=== PATIENT | female | born 1985 | race Caucasian/White ===

== ENCOUNTER 2018-01-25 11:35 | Emergency (ER) | payer OTHER ==
[2018-01-25] MEDS ORDERED: TETANUS/DIPHTHERIA/PERTUSSIS 0.5 ML SYRINGE IM ONE (12:34)
[2018-01-25] MEDS ORDERED: LIDOCAINE-EPINEPH-TETRACAINE 3 ML SYRINGE TOP ONE (12:39)
[2018-01-25] MEDS ORDERED: LIDOCAINE-EPINEPH-TETRACAINE 3 ML SYRINGE TOP STA (12:49)
--- NOTE | 2018-01-25 12:53 | ED Physician Documentation ---
History of Present Illness - Stated complaint Stated Complaint: WRIST LAC - Chief complaint Chief Complaint: Laceration - Additonal information Additional information: hx from pt healthy 32 y/o f lac to L ant radial wrist with kitchen knife Review of Systems Skin: reports: Laceration (s) PD PAST MEDICAL HISTORY - Past Medical History Past Medical History: No - Past Surgical History Past Surgical History: Yes - Present Medications Home Medications: Ambulatory Orders Medication Instructions Recorded Confirmed Omeprazole 01/25/18 - Allergies Allergies/Adverse Reactions: Allergies Allergy/AdvReac Type Severity Reaction Status Date / Time acetaminophen [From Vicodin] Allergy Emesis Verified 01/25/18 11:43 hydrocodone [From Vicodin] Allergy Emesis Verified 01/25/18 11:43 - Social History Does the pt smoke?: Yes Smoking Status: Current every day smoker PD ED PE NORMAL - Vitals Vital signs reviewed: Yes - Derm Derm: Other (L wrist ant radial aspect approx 1/5 cm full thickeness lac and adjacent 3 cm superficial abrasion, thankfully not into radial artery or tendons , ran thumb and wrsit through ROM and no tednon defect seen and no FB seen, very clean sharp and well approximated, MSV intact) Results - Vitals Vitals: Vital Signs - 24 hr 01/25/18 11:41 Temperature 36.2 C L Heart Rate 84 Respiratory 17 Rate Blood Pressure 135/67 H O2 Saturation 100 Oxygen O2 Source Room air Procedures - Laceration (location) L wrist Length in cm: 1.5 Wound type: Linear Neurovascular status: Sensory intact, Motor intact Tendon involvement: Tendon intact Anesthesia: LET Wound Preparation: Irrigated copiously 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 No: FB identified Skin layer closure: Dermabond Other: Patient tolerated well, No complications, Dressing applied, Tetanus booster given Complexity: Simple Departure - Departure Disposition: 01 Home, Self Care Clinical Impression: Laceration Condition: Good Instructions: ED Laceration Ext Skin Glue Comments: The skin glue will gradually flake off over about 10 days May shower and wash hands as usual but do not soak the wound. Do not apply any lotion or ointment as that might dissolve the glue Wear the splint to keep from bending the wrist and putting stress on the healing wound This wound should be low risk for infection but any wound can become infected so if you notice any redness swelling or drainage, please come back to the ER You got a tetanus booster in the ER today - please let your PMD know so your records can be updated
[2018-01-25 13:53] VITALS: BP 116/84
== END 2018-01-25 13:53 | disposition home or self-care (01) ==
LOC: ED 11:35
DX: S61.512A Laceration without foreign body of left wrist, initial encounter (principal); W26.0XXA Contact with knife, initial encounter; Y93.G1 Activity, food preparation and clean up; Y92.511 Restaurant or cafe as the place of occurrence of the external cause; Z23 Encounter for immunization; F17.200 Nicotine dependence, unspecified, uncomplicated
CPT/HCPCS: 12001; 90471; 99282; 99283

== ENCOUNTER 2018-03-14 20:27 | Emergency (ER) | payer SELFPAY ==
[2018-03-14 20:34] VITALS: BP 133/82
[2018-03-14] MEDS ORDERED: IBUPROFEN 800 MG TABLET PO STA (20:53)
[2018-03-14] MEDS ORDERED: AMOXICILLIN 250 MG CAPSULE PO STA (20:53)
--- NOTE | 2018-03-14 20:55 | ED Physician Documentation ---
PD HPI HEENT - Stated complaint Stated Complaint: EAR PX - Chief complaint Chief Complaint: Heent - History obtained from History obtained from: Patient - History of Present Illness Timing - onset: Today (About 1 week of URI sx, runny nose. Now R ear pain and muffled hearing today. No fever.) Review of Systems Constitutional: denies: Fever, Chills Eyes: denies: Loss of vision, Decreased vision, Photophobia Ears: denies: Tinnitus/ringing, Foreign body Nose: reports: Rhinorrhea / runny nose, Congestion PD PAST MEDICAL HISTORY - Past Medical History Past Medical History: No - Past Surgical History Past Surgical History: Yes Ortho: Other - Present Medications Home Medications: Ambulatory Orders Medication Instructions Recorded Confirmed Omeprazole 01/25/18 Amoxicillin 500 mg PO TID #30 capsule 03/14/18 Ibuprofen [Motrin] 800 mg PO Q8H PRN #30 tablet 03/14/18 - Allergies Allergies/Adverse Reactions: Allergies Allergy/AdvReac Type Severity Reaction Status Date / Time acetaminophen [From Vicodin] Allergy Emesis Verified 01/25/18 11:43 hydrocodone [From Vicodin] Allergy Emesis Verified 01/25/18 11:43 - Social History Does the pt smoke?: Yes Smoking Status: Current every day smoker Does the pt drink ETOH?: Yes Does the pt have substance abuse?: No - Immunizations Immunizations are current?: Yes - POLST Patient has POLST: No PD ED PE NORMAL - Vitals Vital signs reviewed: Yes - General General: Alert and oriented X 3, No acute distress - HEENT HEENT: PERRL, EOMI, Other (BAD ROM) - Neck Neck: Supple, no meningeal sign, No bony TTP - Neuro Neuro: Alert and oriented X 3, Normal speech - Psych Psych: Normal mood, Normal affect Results - Vitals Vitals: Vital Signs - 24 hr 03/14/18 20:33 Temperature 36.4 C L Heart Rate 99 Respiratory 14 Rate Blood Pressure 133/82 H O2 Saturation 100 Oxygen O2 Source Room air Departure - Departure Disposition: 01 Home, Self Care Clinical Impression: ROM (right otitis media) Qualifiers: Otitis media type: suppurative Chronicity: acute Recurrence: not specified as recurrent Spontaneous tympanic membrane rupture: without spontaneous rupture Qualified Code(s): H66.001 - Acute suppurative otitis media without spontaneous rupture of ear drum, right ear Condition: Good Record reviewed to determine appropriate education?: Yes Instructions: ED Otitis Media Acute Adult Prescriptions: Amoxicillin 500 mg PO TID #30 capsule Ibuprofen [Motrin] 800 mg PO Q8H PRN #30 tablet PRN Reason: PAIN &/OR FEVER Comments: Call your doctor to arrange a follow-up appointment, make An appointment for 1 week's time. In the interim, return anytime if worse or if new symptoms develop. Your blood pressure was elevated today on check into the emergency department. This does not mean that you have hypertension, it is a common phenomenon to come to the emergency department and have elevated blood pressure. I recommend that you see your primary care physician within the week to have it rechecked when you are feeling better.
== END 2018-03-14 21:02 | disposition home or self-care (01) ==
LOC: ED 20:27
DX: H66.001 Acute suppurative otitis media without spontaneous rupture of ear drum, right ear (principal)
CPT/HCPCS: 99283; A9270

== ENCOUNTER 2019-01-01 23:27 | Outpatient (CLI) | payer OTHER | END 2019-01-01 23:28 | disposition short-term general hospital (02) | LOC: EMS 23:27 | PROVIDERS: ATTEND Surgery | DX: O46.93 Antepartum hemorrhage, unspecified, third trimester (principal); R10.2 Pelvic and perineal pain; Z3A.29 29 weeks gestation of pregnancy | CPT/HCPCS: A0425; A0429 ==

== ENCOUNTER 2024-03-03 11:40 | Outpatient (CLI) | payer OTHER | END 2024-03-03 23:59 | disposition critical access hospital (66) | LOC: EMS 11:40 | DX: L50.9 Urticaria, unspecified (principal); R13.10 Dysphagia, unspecified; R07.89 Other chest pain | CPT/HCPCS: A0425; A0427 ==

== ENCOUNTER 2024-03-03 12:14 | Emergency (ER) | payer MEDICAID, OTHER ==
--- NOTE | 2024-03-03 12:24 | ED Physician Documentation ---
History of Present Illness - Stated complaint Stated Complaint: ALLERGIC REACTION - History obtained from History obtained from: Patient - Additonal information Additional information: After eating red snapper 2 nights ago in the middle the night she woke up with hives all over her body that were Quite itchy and associated with some throat tightening. She has been taking Benadryl ever since and in fact took 3 doses today without relief. No history of allergic reaction similarly. I wondered if it might be scombroid and asked if anyone else ate the fish and she responded yes but nobody got similar symptoms. PD PAST MEDICAL HISTORY - Past Surgical History Past Surgical History: Yes Ortho: Other - Present Medications Home Medications: Ambulatory Orders Medication Instructions Recorded Confirmed Omeprazole 01/25/18 Amoxicillin 500 mg PO TID #30 capsule 03/14/18 Ibuprofen [Motrin] 800 mg PO Q8H PRN #30 tablet 03/14/18 Cetirizine [ZyrTEC] 10 mg PO DAILY #5 tablet 03/03/24 Doxepin [SINEquan] 10 mg PO TID PRN #30 cap 03/03/24 EPINEPHrine [Epinephrine] 0.3 mg IJ ONCE PRN #2 each 03/03/24 Famotidine [Pepcid] 20 mg PO BID #10 tablet 03/03/24 predniSONE [Deltasone] 60 mg PO DAILY 5 Days #15 tablet 03/03/24 - Allergies Allergies/Adverse Reactions: Allergies Allergy/AdvReac Type Severity Reaction Status Date / Time acetaminophen [From Vicodin] Allergy Emesis Verified 03/03/24 12:20 hydrocodone [From Vicodin] Allergy Emesis Verified 03/03/24 12:20 - Social History Does the pt smoke?: Yes Smoking Status: Current every day smoker Does the pt drink ETOH?: Yes Does the pt have substance abuse?: No - Immunizations Immunizations are current?: Yes - POLST Patient has POLST: No PD ED PE NORMAL - Vitals Vital signs reviewed: Yes - General General: Alert and oriented X 3, No acute distress - HEENT HEENT: Pharynx benign - Neck Neck: Supple, no meningeal sign, No bony TTP - Cardiac Cardiac: RRR, No murmur - Respiratory Respiratory: No respiratory distress, Clear bilaterally - Abdomen Abdomen: Non tender - Derm Derm: Other (Body wives confluent hives partially sparing the face and sparing the palms and soles.) - Neuro Neuro: Alert and oriented X 3, Normal speech Results - Vitals Vitals: Vital Signs - 24 hr 03/03/24 03/03/24 03/03/24 12:21 12:24 13:23 Temperature 36.5 C 36.5 C 36.5 C Heart Rate 86 86 82 Respiratory 16 16 16 Rate Blood Pressure 115/76 115/76 114/72 O2 Saturation 100 100 100 Oxygen O2 Source Room air PD Medical Decision Making - ED course ED course: She presents with a pretty significant allergic reaction with hives. Could be scombroid, but other people ate the same physician did not get sick. She has failed Benadryl. Will do IM epinephrine, oral dexamethasone, Pepcid, doxepin, and Zyrtec. I am doing the IM epinephrine for the hives., I do not believe she has anaphylaxis. Departure - Departure Disposition: Home, Self Care Clinical Impression: Hives Condition: Good Record reviewed to determine appropriate education?: Yes Instructions: ED Allergic Reaction General Other Prescriptions: predniSONE [Deltasone] 60 mg PO DAILY 5 Days #15 tablet EPINEPHrine [Epinephrine] 0.3 mg IJ ONCE PRN #2 each PRN Reason: Allergy Symptoms Famotidine [Pepcid] 20 mg PO BID #10 tablet Doxepin [SINEquan] 10 mg PO TID PRN #30 cap PRN Reason: Itching Cetirizine [ZyrTEC] 10 mg PO DAILY #5 tablet Comments: I sent your prescriptions electronically to the [facility] in [place]. Talk with your doctor about referral for allergy testing. Would avoid red snapper and similar fish for now. Call your doctor to arrange a follow-up appointment, make the next available appointment. In the interim, return anytime if worse or if new symptoms develop. You can stop Benadryl/diphenhydramine with current medications, Forms: PCP List Discharge Date/Time: 03/03/24 13:23
[2024-03-03 12:30] VITALS: O2SAT 100
[2024-03-03] MEDS: CHERRY SYRUP 10 ML UDC PO ONE (12:30)
[2024-03-03] MEDS: FAMOTIDINE 20 MG TABLET PO STA (12:30)
[2024-03-03] MEDS: CETIRIZINE 10 MG TABLET PO STA (12:30)
[2024-03-03] MEDS: DOXEPIN 10 MG CAPSULE PO STA (12:30)
[2024-03-03] MEDS: DEXAMETHASONE 10 MG/ML VIAL PO STA (12:30)
[2024-03-03] MEDS: EPINEPHrine 1 MG/ML AMP IM STA (12:34)
[2024-03-03 13:27] VITALS: BP 114/72
== END 2024-03-03 13:23 | disposition home or self-care (01) ==
LOC: ED 12:14
DX: T78.1XXA Other adverse food reactions, not elsewhere classified, initial encounter (principal); L50.9 Urticaria, unspecified; F17.200 Nicotine dependence, unspecified, uncomplicated
CPT/HCPCS: 96372; 99283; 99284; A9270

== ENCOUNTER 2024-03-05 04:56 | Outpatient (CLI) | payer OTHER | END 2024-03-05 23:59 | disposition critical access hospital (66) | LOC: EMS 04:56 | DX: L50.9 Urticaria, unspecified (principal); M79.89 Other specified soft tissue disorders | CPT/HCPCS: A0425; A0427 ==

== ENCOUNTER 2024-03-05 05:27 | Emergency (ER) | payer OTHER ==
[2024-03-05] MEDS: methylPREDNISolone SUCCINATE 125 MG/2 ML VIAL IVP STA (05:59)
[2024-03-05 07:11] LABS: RAPID STREP SCREEN Negative (Negative)
--- NOTE | 2024-03-05 07:18 | ED Physician Documentation ---
History of Present Illness - Stated complaint Stated Complaint: ALLERGIC REACTION - Chief complaint Chief Complaint: Allergic Rx - Additonal information Additional information: Patient 38-year-old female presenting with concern for allergic reaction. Today woke from sleep short of breath. Has been having persistent urticaria from an allergic reaction that began 2 days ago. Is currently on a Medrol Dosepak. With the shortness of breath gave herself Dose I am epinephrine and called 911. Currently reports feeling significantly better. Review of Systems Constitutional: denies: Fever Eyes: denies: Loss of vision Ears: denies: Loss of hearing Nose: denies: Rhinorrhea / runny nose Throat: denies: Dental pain / toothache Cardiac: denies: Chest pain / pressure Respiratory: reports: Dyspnea GI: denies: Abdominal Pain : denies: Dysuria Skin: reports: Rash PD PAST MEDICAL HISTORY - Past Surgical History Past Surgical History: Yes Ortho: Other - Present Medications Home Medications: Ambulatory Orders Medication Instructions Recorded Confirmed Omeprazole 01/25/18 Amoxicillin 500 mg PO TID #30 capsule 03/14/18 Ibuprofen [Motrin] 800 mg PO Q8H PRN #30 tablet 03/14/18 Cetirizine [ZyrTEC] 10 mg PO DAILY #5 tablet 03/03/24 Doxepin [SINEquan] 10 mg PO TID PRN #30 cap 03/03/24 EPINEPHrine [Epinephrine] 0.3 mg IJ ONCE PRN #2 each 03/03/24 Famotidine [Pepcid] 20 mg PO BID #10 tablet 03/03/24 predniSONE [Deltasone] 60 mg PO DAILY 5 Days #15 tablet 03/03/24 EPINEPHrine [Epinephrine] 0.3 mg IJ ONCE PRN #1 each 03/05/24 - Allergies Allergies/Adverse Reactions: Allergies Allergy/AdvReac Type Severity Reaction Status Date / Time acetaminophen [From Vicodin] Allergy Emesis Verified 03/05/24 05:35 hydrocodone [From Vicodin] Allergy Emesis Verified 03/05/24 05:35 - Social History Does the pt smoke?: Yes Smoking Status: Current every day smoker Does the pt drink ETOH?: Yes Does the pt have substance abuse?: No - Immunizations Immunizations are current?: Yes - POLST Patient has POLST: No PD ED PE NORMAL - General General: Alert and oriented X 3 - HEENT HEENT: Atraumatic - Neck Neck: Supple, no meningeal sign - Cardiac Cardiac: RRR - Respiratory Respiratory: No respiratory distress - Abdomen Abdomen: Normal bowel sounds - Female Female : Deferred - Rectal Rectal: Deferred - Back Back: No CVA TTP - Derm Derm: Other (Diffuse urticarial rash) Results - Vitals Vitals: Vital Signs - 24 hr 03/05/24 03/05/24 05:32 06:51 Temperature 36.6 C Heart Rate 79 80 Respiratory 22 16 Rate Blood Pressure 115/87 H 121/86 H O2 Saturation 100 100 Oxygen O2 Source Room air - Labs Labs: Laboratory Tests 03/05/24 06:05 Group A Strep Rapid Negative PD Medical Decision Making - ED course Complexity details: reviewed results, considered differential, d/w patient ED course: Patient 38-year-old female presenting the emergency department with concern for persistent worsening allergic reaction. Seen here 2 days ago and evaluated for diffuse urticarial rash that began while sleeping. No previous history food or environmental allergy. No previous history of anaphylaxis. Was discharged on medications including Medrol Dosepak as well as prescription for epinephrine. Woke this evening with shortness of breath and gave herself a dose from her EpiPen prior to calling 911. On arrival to the emergency department she was afebrile, hematin stable. She has not modest urticarial rash that is diffuse throughout the body sparing palms and soles. No involvement mucous membranes. She has clear aeration in all lung escalona and no indications hemodynamic compromise or anaphylaxis. She does report that her last dose of steroid was yesterday morning. She is given 125 mg methylprednisolone here in the emergency department. Monitored for several hours. She did report a moderate sore throat. Examination of her posterior oropharynx is benign with no indications deep space neck infection. Strep pharyngitis swab is negative. At this time will discharge with instructions for follow-up with primary care. It appears that both of her allergic reactions to date have happened while sleeping in her room. She is encouraged to clean her bedding, clothing, and become cognizant of any other possible exposures at home. Clear return precautions given prior to discharge. Departure - Departure Disposition: 01 Home, Self Care Clinical Impression: Allergic reaction Instructions: ED Allergic Reaction General Other Prescriptions: EPINEPHrine [Epinephrine] 0.3 mg IJ ONCE PRN #1 each PRN Reason: Anaphylaxis Comments: I have written you a refill for your EpiPen to have available at home. Please use this as directed. Please continue all of your current medications including your Medrol dose pack. Please follow-up with your primary care doctor soon as possible. If it anytime you have new or worsening symptoms please do not hesitate to either contact EMS or return to the emergency department.
[2024-03-05 07:46] VITALS: BP 136/96; O2SAT 99
== END 2024-03-05 07:46 | disposition home or self-care (01) ==
LOC: EDUNIT# → ED 05:27
DX: T78.40XA Allergy, unspecified, initial encounter (principal); F17.210 Nicotine dependence, cigarettes, uncomplicated
CPT/HCPCS: 87070; 87430; 96374; 99284